=== PATIENT | male | born 1990 | race Caucasian/White ===

== ENCOUNTER 2023-02-24 20:02 | Emergency (ER) | payer OTHER, SELFPAY ==
[2023-02-24 20:22] VITALS: BP 136/67; PULSE 106; RESP 18; TEMP 37.3; O2SAT 98; BMI 25.1
--- NOTE | 2023-02-24 20:22 | ED.UPPEXIN ---
HPI - Extremity Injury (Upper) General Chief Complaint: Wound/Laceration Stated Complaint: finger laceration, work injury Time Seen by Provider: 02/24/23 21:37 Source: patient Mode of arrival: ambulatory Limitations: no limitations History of Present Illness HPI narrative: Patient is a 32-year-old male right-hand dominant, who presents emergency department for evaluation of a laceration sustained to the right index finger prior to arrival. He states that he accidentally cut this on a piece of metal while at work. The date of his last tetanus vaccination is unknown. At this time bleeding is controlled. He denies numbness tingling or cold sensation to the hand. He has full AROM to the digit. He is requesting repair with Steri-Strips/skin glue, does not want sutures due to fear of needles. He denies use of anticoagulants or coagulation disorders. Related Data Allergies Allergy/AdvReac Type Severity Reaction Status Date / Time No Known Allergies Allergy Verified 02/24/23 20:22 Review of Systems Review of Systems: Yes all other systems are reviewed and are negative PMFSH Past Medical History Attestation statement: The following information was validated with the patient. Source: old records reviewed Social History Social History Advance Directives: No Advance Directives Information Provided: No Physical Exam Vital Signs: Vital Signs: Last Vital Signs Temp 99.1 F 02/24/23 20:22 Pulse 106 H 02/24/23 20:22 Resp 18 02/24/23 20:22 BP 136/67 02/24/23 20:22 Pulse Ox 98 02/24/23 20:22 O2 Del Method Room Air 02/24/23 20:22 BMI result Body Mass Index 25.1 Appearance: Alert.?Oriented to person, place and time. No acute distress.?Normal affect. Neck: Normal inspection.? Neck supple.?? CVS: Heart sounds normal. Normal heart rate and rhythm.? Pulses normal.?? Respiratory: No respiratory distress.? Lung sounds clear to auscultation bilaterally?? Skin: Skin warm and dry.? Normal skin color.? 0.5cm superficial laceration to right 2nd PIP Extremities: No extremity edema.? Neuro: Moves all extremities spontaneously. Sensation intact bilaterally. Ambulates with normal steady gait. Course Course Course Narrative: RME - 32 yo male right hand dominant male presents to the ER for evaluation of right index finger laceration cut on a piece of metal at work about 30 minutes ago. Plan: tdap and wound repair, would prefer glue and steri strips but continues to ooze in triage. Medications Administered Discontinued Medications Generic Name Dose Route Start Last Admin Trade Name Cesilia PRN Reason Stop Dose Admin Diphtheria/Tetanus/Acell Pertussis 0.5 ml 02/24/23 20:23 02/24/23 21:43 Diphth,Pertus(Acell),Tet Adult 0.5 Ml Syringe IM 02/24/23 20:24 0.5 ml .ONCE ONE Administration Medical Decision Making Medical Decision Making [facility] Narrative: Patient is a 32-year-old male presents emergency department for evaluation of a laceration of the right 2nd PIP. Bleeding is controlled. Edges are well approximated. Cleansed with saline and Betadine. Amenable to repair with Steri-Strips and skin glue as per patient's request. The extremities neurovascularly intact distally. Not appear to have any tendon involvement, low suspicion for fracture/dislocation. XR imaging was deferred. Tdap was updated today. Discussed worrisome signs and symptoms that would warrant re-evaluation. Stable for discharge. Differential Diagnosis Differential Diagnoses: The differential diagnosis associated with the presentation includes (As noted above) Tests considered The following testing was considered but not selected: As noted above Prescription Management I considered prescription management with: Pain Medication (Acetaminophen/ibuprofen) Discharge Plan Discharge Clinical Impression: Laceration Patient Disposition: Home, Self-Care Instructions: Skin Adhesive Care (ED) Stand Alone Forms: Work/School Release Interventions: ED Discharge Assessment Last Done: 02/24/23 22:41
[2023-02-24] MEDS: Diphth,Pertus(ACell),Tet Adult 0.5 ML SYRINGE IM (21:43)
--- NOTE | 2023-02-24 21:49 | PC.NURSE ---
Pt ca&ox4, no signs of distress. Pt reports he cut his right pointer finger at work on a piece of metal. Pt denies pain. Pt medicated per mar. Pt asking about stitches, pt advised provider assess and will determine the best course of action w/ pt. Plan of care ongoing.
--- NOTE | 2023-02-24 22:43 | PC.NURSE ---
Pt ca&ox4, no signs of distress. Pts finger splinted per provider. Plan of care ongoing.
== END 2023-02-24 23:07 | disposition home or self-care (01) ==
PROVIDERS: Emergency Provider Emergency Medicine
DX: S61.210A Laceration without foreign body of right index finger without damage to nail, initial encounter (principal); S60.511A Abrasion of right hand, initial encounter; W26.9XXA Contact with unspecified sharp object(s), initial encounter; Y93.9 Activity, unspecified; Y92.9 Unspecified place or not applicable; Y99.0 Civilian activity done for income or pay; Z23 Encounter for immunization
CPT/HCPCS: 12001; 90471; 90715; 99283; 99284